=== PATIENT | female | born 1985 | race African-American/Black ===

== ENCOUNTER 2018-02-13 11:51 | Observation (INO) | payer BC ==
[2018-02-13] MEDS ORDERED: ACETAMINOPHEN 500 MG TAB PO PRN (12:56)
[2018-02-13] MEDS ORDERED: ONDANSETRON 4 MG/2 ML VIAL IV PRN (12:56)
[2018-02-13] MEDS ORDERED: TRAMADOL HCL 50 MG TAB PO PRN (12:56)
[2018-02-13] MEDS ORDERED: DIPHENHYDRAMINE 50 MG/ML VIAL IV PRN (12:56)
[2018-02-13 12:58] VITALS: BMI 28.8
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
[2018-02-13 14:15] LABS: Absolute Lymphocytes (CBC) 3.6 K/uL (0.7-4.9); Absolute Monocytes 0.7 K/uL (0.1-1.3); Absolute Neutrophil 5.4 K/uL (1.8-8.0); Basophils % 2.1 % (0-1.3); Eosinophils % 1.5 % (0-4.4); Hematocrit 13.8 % (36.0-45.0); Lymphocytes % 36.2 % (15.3-44.8); MCH 15.8 pg (27.0-35.0); MPV 9.6 fL (7.6-11.3); Monocytes % 6.8 % (3.3-12.3); RBC Red Blood Cell Count 2.42 M/uL (3.86-4.86)
[2018-02-13 14:53] LABS: Blood Morphology Comment NOTED (NOT SEEN); Platelet Estimate INCR; Urine White Blood Cell Casts OK
[2018-02-13 14:53] LABS: Urine Appearance CLEAR; Urine Bilirubin NEGATIVE (NEG); Urine Blood NEGATIVE (NEG); Urine Color YELLOW; Urine Glucose NEGATIVE (NEG); Urine Protein NEGATIVE (NEG); Urine pH 6.5 (5.0-7.0)
[2018-02-13 14:54] LABS: Anisocytosis 3+; Elliptocytes 1+; Hypochromasia 3+; Teardrop Cell 1+
[2018-02-13 14:58] LABS: Urine Microscopic Reflex ORDER UMIC
[2018-02-13 14:59] LABS: ALT/SGPT 14 U/L (12-78); AST/SGOT 19 U/L (15-37); Albumin 3.5 g/dL (3.4-5.0); Alkaline Phosphatase 55 U/L (45-117); BUN Blood Urea Nitrogen 6 mg/dL (7-18); Bicarbonate 22 mmol/L (21-32); Bilirubin Total 0.3 mg/dL (0.2-1.0); Ferritin 1.5 ng/mL (8-388); Glucose Level 84 mg/dL (74-106); Magnesium 1.9 mg/dL (1.8-2.4); Potassium 4.1 mmol/L (3.5-5.1); Protein, Total 7.3 g/dL (6.4-8.2); Sodium Level 141 mmol/L (136-145); Transferrin 303 mg/dL (200-360)
[2018-02-13 15:04] LABS: Urine Bacteria 20-50 /HPF (<20); Urine Culture Reflex Order REFLEXED; Urine RBC <5 /HPF (NONE SEEN)
[2018-02-13] MEDS ORDERED: NA CHLORIDE 0.9% 250 ML ONE ×2 (15:04→18:25)
[2018-02-13 15:05] LABS: Urine Mucus 1+ /HPF (NONE SEEN)
[2018-02-13] MEDS ORDERED: FUROSEMIDE 20 MG/ 2ML VIAL IV ONE (21:13)
[2018-02-13 22:47] LABS: Hematocrit 23.6 % (36.0-45.0)
[2018-02-14] MEDS ORDERED: PANTOPRAZOLE 40MG TABLET PO SCH (06:30)
[2018-02-14 06:35] LABS: BUN Blood Urea Nitrogen 7 mg/dL (7-18); Bicarbonate 25 mmol/L (21-32); Glucose Level 85 mg/dL (74-106); Potassium 3.7 mmol/L (3.5-5.1); Sodium Level 140 mmol/L (136-145)
[2018-02-14 06:57] LABS: Absolute Lymphocytes (CBC) 3.2 K/uL (0.7-4.9); Absolute Monocytes 0.8 K/uL (0.1-1.3); Absolute Neutrophil 6.6 K/uL (1.8-8.0); Eosinophils % 1.6 % (0-4.4); Hematocrit 21.6 % (36.0-45.0); Lymphocytes % 29.2 % (15.3-44.8); MCH 20.1 pg (27.0-35.0); MCV 64.6 fL (80-100); MPV 8.8 fL (7.6-11.3); RBC Red Blood Cell Count 3.35 M/uL (3.86-4.86)
[2018-02-14] MEDS ORDERED: NA CHLORIDE 0.9% 250 ML IV SCH (09:00)
[2018-02-14] MEDS ORDERED: POTASSIUM CL SA 10 MEQ TAB PO ONE (09:00)
--- NOTE | 2018-02-14 12:12 | P.DS ---
Admission Date: 02/13/18 Discharge Date: 02/14/18 Primary Care Provider: none; MEDICAL DATA ENTRY CLERK-Dr. Alston Disposition: ROUTINE DISCHARGE Discharge Condition: GOOD Reason for Admission: Fatigue Procedures: Blood transfusions x3 - Problems (1) Fatigue Onset Date: 02/14/18 Current Visit: Yes Status: Acute Qualifiers: Fatigue type: unspecified Qualified Code(s): R53.83 - Other fatigue (2) Anemia Onset Date: 02/14/18 Current Visit: Yes Status: Acute Qualifiers: Anemia type: other cause (3) Uterine fibroid Onset Date: 02/14/18 Current Visit: Yes Status: Chronic Brief History of Present Illness: 32-year-old female presented to the hospital after she was transferred from outpatient emergency room due to asymptomatic anemia. Patient found to have a hemoglobin of 4.3. Patient has been having some fatigue over the last month. She had increased fatigue today. She was not able to do work today. Some shortness of breath was noted. Patient has seen gynecology as an outpatient. In August 2017 she had a urine biopsy done due to abnormal vaginal bleeding. She has found to have fibroids at that time. No history of anemia was noted. At the outpatient ER facility she had a hemoglobin of 4.3. Patient transferred for symptomatic anemia. Patient denied any melena, vomiting of blood. She does report a history of hemorrhoids. No significant chest pain noted. Patient currently stable this time. Patient does not appear in any respiratory distress. Patient does not smoke. She drinks on occasion. She has had 1 with 1 child. The patient works as a databases computer consultant. Patient does not take any control medication. She reports that her vaginal bleeding is well controlled. 1st day of her last period was January 14. Her periods now last about 6 days. Moderate vaginal bleeding noted. Hospital Course: Patient did well in the course of her stay. Patient received 3 units of packed red blood cells. Patient found to be iron deficient. Patient iron deficient likely from uterine fibroids. Patient now with normal periods. Patient is seen by gynecology as an outpatient. At discharge she will continue with iron 325 mg 1 pill 3 times a day. Recommendation is to recheck CBC in 1-2 weeks to monitor progress. Patient will need iron medication until iron levels have significantly improved. Patient may require GI evaluation as an outpatient including EGD and colonoscopy. Vital Signs/Physical Exam: Temp Pulse Resp BP Pulse Ox 97.3 F 71 18 126/50 L 100 02/14/18 12:00 02/14/18 12:00 02/14/18 12:00 02/14/18 12:00 02/14/18 12:00 General: Alert, In no apparent distress, Oriented x3, Cooperative HEENT: Atraumatic Neck: Supple Respiratory: Clear to auscultation bilaterally, Normal air movement Cardiovascular: Normal pulses, Regular rate/rhythm Gastrointestinal: Normal bowel sounds, Soft and benign, Non-distended, No tenderness, No masses, No rebound, No guarding Musculoskeletal: No erythema, No tenderness, No warmth Integumentary: No tenderness/swelling, No erythema, No warmth, No cyanosis Neurological: Normal speech, Normal strength at 5/5 x4 extr, Normal tone, Normal affect Laboratory Data at Discharge: WBC 10.9 K/uL (4.3-10.9) 02/14/18 05:49 Hgb 6.7 g/dL (12.0-15.0) L* 02/14/18 05:49 Hct 21.6 % (36.0-45.0) L 02/14/18 05:49 Plt Count 780 K/uL (152-406) H 02/14/18 05:49 Sodium 140 mmol/L (136-145) 02/14/18 05:49 Potassium 3.7 mmol/L (3.5-5.1) 02/14/18 05:49 BUN 7 mg/dL (7-18) 02/14/18 05:49 Creatinine 0.70 mg/dL (0.55-1.3) 02/14/18 05:49 Glucose 85 mg/dL (74-106) 02/14/18 05:49 Magnesium 2.0 mg/dL (1.8-2.4) 02/14/18 05:49 Total Bilirubin 0.3 mg/dL (0.2-1.0) 02/13/18 13:55 AST 19 U/L (15-37) 02/13/18 13:55 ALT 14 U/L (12-78) 02/13/18 13:55 Alkaline Phosphatase 55 U/L (45-117) 02/13/18 13:55 Home Medications: Ferrous Sulfate [Iron] 325 mg PO TID #90 tablet 02/14/18 New Medications: Ferrous Sulfate [Iron] 325 mg PO TID #90 tablet Patient Discharge Instructions: 1. Patient will need a follow up with a PCP in 1-2 weeks to follow up this hospitalization. 2. Patient presented with severe anemia. Patient with iron deficiency anemia likely related to uterine fibroids. Patient received 3 units of packed red blood cells. Hemoglobin stable this time. At discharge she will continue with iron 325 mg 1 pill 3 times a day. Recommendation is to recheck lab-CBC in 1-2 weeks to monitor progress. Patient may benefit with GI evaluation in the future with possible need for EGD and colonoscopy. Diet: Regular Activity: Ad krish Time spent managing pt's care (in minutes): 55
[2018-02-14 15:30] VITALS: O2SAT 98
[2018-02-14 15:32] VITALS: TEMP 97.8
[2018-02-14] MEDS ORDERED: FUROSEMIDE 20 MG/ 2ML VIAL IV ONE (16:00)
[2018-02-14 16:21] LABS: Hematocrit 29.1 % (36.0-45.0)
[2018-02-14 17:57] VITALS: BP 123/60
[2018-02-14] MEDS ORDERED: SMZ./TMP. 800/160 MG TABLET PO SCH (21:00)
== END 2018-02-14 18:31 | disposition home or self-care (01) ==
LOC: 4TH 12:37
PROVIDERS: ADMIT Family Medicine; ATTEND Family Medicine
PROC: 30233N1 Transfusion of Nonautologous Red Blood Cells into Peripheral Vein, Percutaneous Approach (ICD-10-PCS; principal; 2018-02-14)
DX: R53.83 Other fatigue (principal); D50.9 Iron deficiency anemia, unspecified; D25.9 Leiomyoma of uterus, unspecified; Z91.040 Latex allergy status
CPT/HCPCS: 36415; 80048; 80053; 81003; 81015; 81025; 82607; 82728; 83540; 83735; 84439; 84443; 84466; 85014; 85018; 85025; 86850; 86900; 86901; 87086; 87088; G0378; J1940; P9016